=== PATIENT | male | born 1930 | race Caucasian/White ===

== ENCOUNTER 2018-07-31 07:12 | Emergency (ER) | payer OTHER ==
[~2018-07-31] VITALS: Ht 165.1 cm; Wt 68.0 kg
[2018-07-31 07:12] VITALS: BP_SYST 154
[~2018-07-31 07:12] MED LIST: ALIS150T; AMLO5TAB92; HYDR-1189; PRAV20TA; SUNI25CA2
[2018-07-31] MEDS ORDERED: DIPH-TET-PERTUS Vaccine 0.5 ML VIAL (ADACEL) IM ONE (07:45)
[2018-07-31] MEDS ORDERED: BACITRACIN 1 GM OINT TP ONE (07:45)
[2018-07-31] MEDS ORDERED: LIDOCAINE 1% 10 MG/ML, 20 ML MDV INJ ONE (08:00)
[2018-07-31] MEDS ORDERED: LIDOCAINE 1%, 20 ML MDV 20 ML ONE (08:08)
[2018-07-31] MEDS ORDERED: VALS160T2 PO (08:18)
[2018-07-31] MEDS ORDERED: DEC1 PO (08:18)
[2018-07-31] MEDS ORDERED: TEMA30CA5 PO (08:18)
[2018-07-31] MEDS ORDERED: ANTI1CAP2 PO (08:18)
[2018-07-31] MEDS ORDERED: auryxia (08:18)
[2018-07-31] MEDS ORDERED: XALEYE OP (08:18)
[2018-07-31] MEDS ORDERED: LEVO25TA7 PO (08:18)
[2018-07-31] MEDS ORDERED: SODI650T PO (08:18)
[2018-07-31] MEDS ORDERED: ALPHAGANP EACH EYE (08:18)
[2018-07-31] MEDS ORDERED: LORA-258 PO (08:18)
[2018-07-31] MEDS ORDERED: SENN-67 PO (08:18)
[2018-07-31 09:30] VITALS: BP_SYST 126
== END 2018-07-31 09:30 | disposition home or self-care (01) ==
LOC: SED 07:12
DX: S01.111A Laceration without foreign body of right eyelid and periocular area, initial encounter (principal); I10 Essential (primary) hypertension; Z85.528 Personal history of other malignant neoplasm of kidney; Z79.899 Other long term (current) drug therapy; W22.8XXA Striking against or struck by other objects, initial encounter; Y93.89 Activity, other specified; Y92.89 Other specified places as the place of occurrence of the external cause; Y99.8 Other external cause status
CPT/HCPCS: 12013; 70450; 90471; 90715; 99284; J2001